=== PATIENT | male | born 1995 | race Caucasian/White ===

== ENCOUNTER 2019-07-29 07:45 | Emergency (ER) | payer OTHER ==
[~2019-07-29] VITALS: Ht 195.6 cm; Wt 113.6 kg
[2019-07-29 07:46] VITALS: BP 139/86
--- NOTE | 2019-07-29 08:17 | NUR ---
PT TO US
--- NOTE | 2019-07-29 08:37 | NUR ---
URINE SAMPLE WALKED TO LAB
[2019-07-29 08:54] LABS: MICROSCOPIC INDICATED
--- NOTE | 2019-07-29 09:08 | NUR ---
REPORT FROM THEODORA EDGE. PT STABLE, RESTING IN BED WITH NO COMPLAINTS AT THIS TIME.
[2019-07-29 09:09] LABS: CULTURE INDICATED? YES
== END 2019-07-29 09:42 | disposition home or self-care (01) ==
LOC: ED 08:42
DX: N30.00 Acute cystitis without hematuria (principal); N45.1 Epididymitis
CPT/HCPCS: 76870; 81001; 87086; 87491; 87591; 99284